=== PATIENT | female | born 1955 | race Caucasian/White ===

== ENCOUNTER → 2016-10-30 | Outpatient (CLI) | payer OTHER ==
--- NOTE | 2016-10-30 11:18 | MG ---
Examination: Bilateral screening mammogram. Clinical history: Routine screening. Technique: Digital CC and MLO views of both breasts were obtained. Computer aided detection analysis was performed and used during the interpretation. Comparison: 07/14/2015. Findings: The breasts are composed of scattered fibroglandular densities. Benign-appearing calcifications are noted in the right breast. No suspicious mass, area of architectural distortion or suspicious cluster of microcalcifications is noted. Impression: 1. No mammographic evidence of malignancy. BI-RADS category 2-benign findings. Recommend routine annual screening mammogram. Diagnostic CAD was utilized and reviewed. * 0 (ZERO) - ASSESSMENT INCOMPLETE; ADDITIONAL IMAGING IS NEEDED. * 0C - ASSESSMENT INCOMPLETE, NEEDS ADDITIONAL IMAGING EVALUATION AND/OR PRIOR MAMMOGRAMS FOR COMPAR MAG. * 1/1 (ONE) - NEGATIVE. * 2/II (TWO) - BENIGN FINDINGS. * 3/III (THREE) - PROBABLY BENIGN FINDING; SHORT INTERVAL FOLLOW-UP SUGGESTED. * 4/IV (FOUR) - SUSPICIOUS ABNORMALITY; BIOPSY SHOULD BE CONSIDERED. * 5/V - HIGHLY SUSPICIOUS OF MALIGNANCY; BIOPSY SHOULD BE PERFORMED. * 6/IV - KNOWN BIOPSY PROVEN MALIGNANCY-APPROPRIATE ACTION SHOULD BE TAKEN. A NEGATIVE X-RAY REPORT SHOULD NOT DELAY BIOPSY IF A DOMINANT OR CLINICALLY SUSPICIOUS MASS IS PRESENT; 4 TO 8 PERCENT OF CANCERS ARE NOT IDENTIFIED BY X-RAY. A NEGATIVE REPORT MAY REINFORCE THE CLINICAL IMPRESSION. ADENOSIS AND DENSE BREASTS MAY OBSCURE AN UNDERLYING NEOPLASM. Reported By:
== END ==
LOC: RAD 09:55
PROVIDERS: ATTEND Specialist
DX: Z12.31 Encounter for screening mammogram for malignant neoplasm of breast (principal)
CPT/HCPCS: 77067

== ENCOUNTER → 2017-11-06 | Outpatient (CLI) | payer OTHER ==
--- NOTE | 2017-11-07 16:50 | MG ---
HISTORY: SCREENING Comparison: Multiple priors dating back to June 11, 2011 FINDINGS: Bilateral CC and MLO projections of the right and left breast were obtained. Scattered fibroglandula r tissue is seen to be present without significant interval change. No suspicious architectural dist ortion, mass or clustered microcalcifications can be observed to suggest malignancy. No skin thicken ing or nipple retraction is appreciated. No pathological lymphadenopathy can be identified. Benign- appearing calcifications are noted within the right and left breast. IMPRESSION: NO RADIOGRAPHIC EVIDENCE OF MALIGNANCY. ACR CATEGORY 2 - benign findings. FOLLOW-UP EXAM 1 YEAR. Diagnostic CAD was utilized and reviewed. * 0 (ZERO) - ASSESSMENT INCOMPLETE; ADDITIONAL IMAGING IS NEEDED. * 1/1 (ONE) - NEGATIVE. * 2/II (TWO) - BENIGN FINDINGS. * 3/III (THREE) - PROBABLY BENIGN FINDING; SHORT INTERVAL FOLLOW-UP SUGGESTED. * 4/IV (FOUR) - SUSPICIOUS ABNORMALITY; BIOPSY SHOULD BE CONSIDERED. * 5/V - HIGHLY SUSPICIOUS OF MALIGNANCY; BIOPSY SHOULD BE PERFORMED. A NEGATIVE X-RAY REPORT SHOULD NOT DELAY BIOPSY IF A DOMINANT OR CLINICALLY SUSPICIOUS MASS IS PRESENT; 4 TO 8 PERCENT OF CANCERS ARE NOT IDENTIFIED BY X-RAY. A NEGA TIVE REPORT MAY REINFORCE THE CLINICAL IMPRESSION. ADENOSIS AND DENSE BREASTS MAY OBSCURE AN UNDERLY ING NEOPLASM. Reported By:
== END ==
LOC: RAD 14:35
PROVIDERS: ATTEND Specialist
DX: Z12.31 Encounter for screening mammogram for malignant neoplasm of breast (principal)
CPT/HCPCS: 77067

== ENCOUNTER 2024-12-29 22:44 | Observation (INO) ==
--- NOTE | 2024-12-29 22:53 | DR.GENAD ---
HPI Time Seen Time Seen by Provider: 12/29/24 22:52 HPI Comment HPI Comment: She has had intermittent arm and chest discomfort for the past few days with at least one episode of blood pressure dropping into the low 100s and she felt really bad at that time. She came back around over the next few days but today noticed that her heart rate was in the 140s on her smart watch; she has some "pressure" in her chest but no n/v/dizziness/headache or abd pain. She does feel "weak". She has a hx of afib which spontaneously resolved and she is on no bp medication or med for rate control. She says she's "prediabetic" and that is why she takes metformin. ROS Review of Systems Constitutional: See HPI, Malaise and Fatigue Eyes: No Symptoms Reported ENTM: No Symptoms Reported Respiratoy: No Symptoms Reported Cardiovascular: See HPI Gastrointestinal/Abdominal: No Symptoms Reported Genitourinary: No Symptoms Reported Neurological: No Symptoms Reported Musculoskeletal: No Symptoms Reported Integumentary: No Symptoms Reported Hematologic/Lymphatic: No Symptoms Reported Endocrine: No Symptoms Reported Psychiatric: No Symptoms Reported PE Vital Signs Vitals: Vital Signs Pulse Rate 124 Pulse Rate 120 Pulse Rate 135 Pulse Rate 126 Pulse Rate 128 Pulse Rate 124 Pulse Rate 125 Pulse Rate 134 Pulse Rate 122 Pulse Rate 122 Pulse Rate 125 Pulse Rate 122 Pulse Rate 129 Pulse Rate 121 Pulse Rate 126 Pulse Rate 117 Pulse Rate 124 Pulse Rate 128 Pulse Rate 126 Pulse Rate 129 Pulse Rate 127 Pulse Rate 126 Pulse Rate 125 Pulse Rate 127 Pulse Rate 127 Pulse Rate 116 Pulse Rate 122 Pulse Rate 125 Pulse Rate 129 Pulse Rate 123 Pulse Rate 125 Respiratory Rate 15 Respiratory Rate 19 Respiratory Rate 14 Respiratory Rate 19 Respiratory Rate 18 Respiratory Rate 19 Respiratory Rate 17 Respiratory Rate 16 Respiratory Rate 22 Respiratory Rate 19 Respiratory Rate 17 Respiratory Rate 17 Respiratory Rate 19 Respiratory Rate 16 Respiratory Rate 12 Respiratory Rate 16 Respiratory Rate 17 Respiratory Rate 16 Respiratory Rate 13 Respiratory Rate 17 Respiratory Rate 15 Respiratory Rate 16 Respiratory Rate 18 Respiratory Rate 17 Respiratory Rate 16 Respiratory Rate 13 Respiratory Rate 16 Respiratory Rate 17 Respiratory Rate 15 Respiratory Rate 15 Blood Pressure 139/66 Blood Pressure 123/78 Blood Pressure 140/74 Blood Pressure 160/77 Blood Pressure 160/77 Blood Pressure 145/70 Blood Pressure 154/92 Blood Pressure 157/116 Blood Pressure 153/79 Blood Pressure 157/66 Blood Pressure 168/86 Blood Pressure 155/84 Blood Pressure 152/83 Blood Pressure 156/69 Blood Pressure 129/83 Blood Pressure 149/87 Blood Pressure 99/54 Blood Pressure 135/68 Blood Pressure 151/67 Blood Pressure 151/67 Blood Pressure 137/85 Blood Pressure 158/65 Blood Pressure 147/74 O2 Sat by Pulse Oximetry 99 O2 Sat by Pulse Oximetry 97 O2 Sat by Pulse Oximetry 97 O2 Sat by Pulse Oximetry 97 O2 Sat by Pulse Oximetry 98 O2 Sat by Pulse Oximetry 98 O2 Sat by Pulse Oximetry 98 O2 Sat by Pulse Oximetry 99 O2 Sat by Pulse Oximetry 98 O2 Sat by Pulse Oximetry 99 O2 Sat by Pulse Oximetry 98 O2 Sat by Pulse Oximetry 98 O2 Sat by Pulse Oximetry 98 O2 Sat by Pulse Oximetry 99 O2 Sat by Pulse Oximetry 98 O2 Sat by Pulse Oximetry 98 O2 Sat by Pulse Oximetry 98 O2 Sat by Pulse Oximetry 99 O2 Sat by Pulse Oximetry 99 O2 Sat by Pulse Oximetry 98 O2 Sat by Pulse Oximetry 99 O2 Sat by Pulse Oximetry 99 O2 Sat by Pulse Oximetry 98 O2 Sat by Pulse Oximetry 98 O2 Sat by Pulse Oximetry 98 O2 Sat by Pulse Oximetry 98 O2 Sat by Pulse Oximetry 98 O2 Sat by Pulse Oximetry 98 O2 Sat by Pulse Oximetry 98 O2 Sat by Pulse Oximetry 98 General Limitations: No Limitations General Appearance: Alert and In No Apparent Distress Head Head Exam: Normal Inspection Eyes Eye exam: Normal Appearance ENT TM/Canal Exam: Bilateral: Normal Neck Neck Exam: Normal Inspection Chest Chest Inspection: Normal Inspection Respiratory Respiratory Exam: Normal Lung Sounds Bilat Respiratory Exam: Bilateral: Clear to Auscultation Cardiovascular Cardiovascular Exam: Tachycardia and Irregular Rhythm Abdominal Exam Abdominal Exam: Normal Inspection, Normal Bowel Sounds and Soft Extremities Extremities Exam: Normal Inspection Back Back Exam: Normal Inspection Neurologic Neurological Exam: Alert and Oriented X3 Psychiatric Psychiatric Exam: Normal Affect and Normal Mood Skin Skin Exam: Warm, Dry, Intact and Normal Color COURSE Treatment Treatment: 51 hr remains in the 110-120 range with bp down to 90/52; pt feels "a little weak" but denies cp, sob; bp rises back to 142/80s while I'm in the room; hr remains elevated; add digoxin 0300 hr erratic and jumps to 140s when she gets up; she still feels "weak" and bp also erratic initially in the 200s then trending down to 90/50 after lopressor; then back to 140s and now back down; will admit pt to control rate and bp; given digoxin d/t low bp; monitor at least overnight. Reevaluation 1st: Improved Consultation Call Returned: 03:36 (Dr King returned call and accepts admission.) [facility] Labs Reviewed Laboratory Results Reviewed?: Yes 12/30/24 03:13 12/30/24 03:13 Laboratory: WBC 11.3 X10^3/uL (3.6-10.0) H 12/29/24 22:50 RBC 4.51 X10^6/uL (3.5-5.4) 12/29/24 22:50 Hgb 14.0 g/dL (12.0-16.0) 12/29/24 22:50 Hct 40.4 % (36.0-47.0) 12/29/24 22:50 MCV 89.5 fL (80.0-100.0) 12/29/24 22:50 MCH 31.0 pg (27.0-34.0) 12/29/24 22:50 MCHC 34.6 g/dL (33.0-35.0) 12/29/24 22:50 RDW 13.7 % (11.6-16.5) 12/29/24 22:50 Plt Count 300 X10^3/uL (150.0-450.0) 12/29/24 22:50 MPV 9.2 fL (7.4-11.0) 12/29/24 22:50 Neut % (Auto) 59.0 % (42.0-75.0) 12/29/24 22:50 Lymph % (Auto) 27.9 % (21.0-51.0) 12/29/24 22:50 Turner % (Auto) 8.1 % (0.0-13.0) 12/29/24 22:50 Eos % (Auto) 3.9 % (0.9-2.9) H 12/29/24 22:50 Baso % (Auto) 1.1 % (0.2-1.0) H 12/29/24 22:50 Neut # (Auto) 6.7 x10^3/uL (2.2-4.8) H 12/29/24 22:50 Lymph # (Auto) 3.2 X10^3/uL (1.3-2.9) H 12/29/24 22:50 Turner # (Auto) 0.9 x10^3/uL (0.3-0.8) H 12/29/24 22:50 Eos # (Auto) 0.4 x10^3/uL (0.0-0.2) H 12/29/24 22:50 Baso # (Auto) 0.1 X10^3/uL (0.0-0.1) 12/29/24 22:50 Absolute Nucleated RBC 0.2 /100WBC 12/29/24 22:50 PT 12.2 SECONDS (11.8-14.3) 12/29/24 22:50 INR Target Range - 12/29/24:50 INR 0.89 (0.8-1.3) 12/29/24 22:50 APTT 27.3 SECONDS (22.9-36.5) 12/29/24 22:50 PTT Comment - 12/29/24 22:50 Sodium 144 mmol/L (136-145) 12/29/24 22:50 Corrected Sodium 144 mmol/L (136-145) 12/29/24 22:50 Potassium 3.8 mmol/L (3.5-5.1) 12/29/24 22:50 Chloride 107 mmol/L (98-107) 12/29/24 22:50 Carbon Dioxide 27.6 mmol/L (21-32) 12/29/24 22:50 BUN 14 mg/dL (7-18) 12/29/24 22:50 Creatinine 0.81 mg/dL (0.55-1.02) 12/29/24 22:50 Est GFR (MDRD) Af Amer > 60 (>60) 12/29/24 22:50 Est GFR (MDRD) Non-Af > 60 (>60) 12/29/24 22:50 Glucose 113 mg/dL (65-99) H 12/29/24 22:50 Calcium 9.3 mg/dL (8.5-10.1) 12/29/24 22:50 Corrected Calcium TNP 12/29/24 22:50 Magnesium 2.1 mg/dL (2.0-2.9) 12/29/24 22:50 Total Bilirubin 0.30 mg/dL (0.2-1.0) 12/29/24 22:50 AST 17 Units/L (15-37) 12/29/24 22:50 ALT 21 Units/L (12-78) 12/29/24 22:50 Alkaline Phosphatase 72 Units/L (46-116) 12/29/24 22:50 Creatine Kinase 87 Units/L (26-192) 12/29/24 22:50 Troponin I High Sens 4.6 ng/L (4.0-60.0) 12/29/24 22:50 Total Protein 8.3 g/dL (6.4-8.2) H 12/29/24 22:50 Albumin 4.5 g/dL (3.4-5.0) 12/29/24 22:50 Globulin 3.8 g/dL (2.5-4.5) 12/29/24 22:50 Albumin/Globulin Ratio 1.2 Ratio (1.1-2.1) 12/29/24 22:50 Free T4 0.88 ng/dL (0.76-1.46) 12/29/24 22:50 TSH 3rd Generation 2.488 uIU/mL (0.358-3.74) 12/29/24 22:50 Digoxin < 0.20 ng/mL (0.9-2) L 12/29/24 22:50 XRAY XRAY Interpreted by: Radiologist X-ray Results: pcxr: No focal consolidation is seen. Opioid Opioid Risk Tool Total: 0 Total Score Risk Category: Low Risk Copyright: Xiang JEWELL predicting aberrant behaviors Discharge Plan Diagnosis Discharge Problem: Atrial fibrillation with RVR Discharge Plan Patient Disposition: ADMITTED INPATIENT Condition: Stable
--- NOTE | 2024-12-29 23:00 | EKG ---
Test Reason : AFIB RVR Blood Pressure : */* mmHG Vent. Rate : 132 BPM Atrial Rate : * BPM P-R Int : * ms QRS Dur : 120 ms QT Int : 316 ms P-R-T Axes : * 75 -16 degrees QTc Int : 468 ms Atrial fibrillation with rapid ventricular response Right bundle branch block Abnormal ECG No previous ECGs available Confirmed by Pawel Smith MD ([id number]) on 12/30/2024 5:35:16 AM Referred By: Confirmed By: Pawel Smith MD
[2024-12-29 23:07] LABS: BASOPHILS # (AUTO) 0.1 X10^3/uL (0.0-0.1); BASOPHILS % (AUTO) 1.1 % (0.2-1.0); EOSINOPHILS # (AUTO) 0.4 x10^3/uL (0.0-0.2); EOSINOPHILS % (AUTO) 3.9 % (0.9-2.9); HEMATOCRIT 40.4 % (36.0-47.0); LYMPHOCYTES # (AUTO) 3.2 X10^3/uL (1.3-2.9); LYMPHOCYTES % (AUTO) 27.9 % (21.0-51.0); MEAN CORPUSCULAR HGB CONC 34.6 g/dL (33.0-35.0); MEAN CORPUSCULAR VOLUME 89.5 fL (80.0-100.0); MEAN PLATELET VOLUME 9.2 fL (7.4-11.0); MONOCYTES # (AUTO) 0.9 x10^3/uL (0.3-0.8); MONOCYTES % (AUTO) 8.1 % (0.0-13.0); NEUTROPHILS # (AUTO) 6.7 x10^3/uL (2.2-4.8); PLATELET COUNT 300 X10^3/uL (150.0-450.0); RED BLOOD COUNT 4.51 X10^6/uL (3.5-5.4); RED CELL DISTRIBUTION WIDTH 13.7 % (11.6-16.5); WHITE BLOOD COUNT 11.3 X10^3/uL (3.6-10.0)
[2024-12-29 23:10] LABS: INR 0.89 (0.8-1.3)
[2024-12-29] MEDS: LOPRESSOR INJ 5 MG AMP IVP ONE (23:16)
[2024-12-29 23:22] LABS: ALANINE AMINOTRANSFERASE 21 Units/L (12-78); ALBUMIN 4.5 g/dL (3.4-5.0); ALKALINE PHOSPHATASE 72 Units/L (46-116); ASPARTATE AMINO TRANSFERASE 17 Units/L (15-37); BLOOD UREA NITROGEN 14 mg/dL (7-18); CALCIUM 9.3 mg/dL (8.5-10.1); CARBON DIOXIDE 27.6 mmol/L (21-32); CHLORIDE 107 mmol/L (98-107); COR NA(FOR HYPERGLY) 144 mmol/L (136-145); CREATINE KINASE 87 Units/L (26-192); CREATININE 0.81 mg/dL (0.55-1.02); GLUCOSE 113 mg/dL (65-99); MAGNESIUM 2.1 mg/dL (2.0-2.9); POTASSIUM 3.8 mmol/L (3.5-5.1); SODIUM 144 mmol/L (136-145); TOTAL PROTEIN 8.3 g/dL (6.4-8.2); eGFR NON BLACK RACES > 60 (>60)
--- NOTE | 2024-12-29 23:30 | RAD ---
EXAM: FRONTAL VIEW CHEST X-RAY HISTORY: Chest pain COMPARISON: None. FINDINGS: No focal consolidation is seen. The heart size is within normal limits. The mediastinum is unremarkable. There is no evidence of pleural effusion or gross pneumothorax. The trachea is midline. IMPRESSION: No focal consolidation is seen. The heart size is normal. THIS IS AN ELECTRONICALLY VERIFIED FINAL REPORT 12/29/2024 11:26 PM - Electronically signed by Milan Sheikh MD
[2024-12-30] MEDS: LANOXIN INJ IVP STA (01:00)
[2024-12-30 03:22] LABS: BASOPHILS # (AUTO) 0.1 X10^3/uL (0.0-0.1); EOSINOPHILS # (AUTO) 0.3 x10^3/uL (0.0-0.2); EOSINOPHILS % (AUTO) 3.1 % (0.9-2.9); HEMOGLOBIN 13.4 g/dL (12.0-16.0); LYMPHOCYTES # (AUTO) 2.4 X10^3/uL (1.3-2.9); LYMPHOCYTES % (AUTO) 24.7 % (21.0-51.0); MEAN CORPUSCULAR HEMOGLOBIN 30.9 pg (27.0-34.0); MEAN CORPUSCULAR HGB CONC 34.3 g/dL (33.0-35.0); MONOCYTES # (AUTO) 0.8 x10^3/uL (0.3-0.8); MONOCYTES % (AUTO) 8.2 % (0.0-13.0); NEUTROPHILS # (AUTO) 6.1 x10^3/uL (2.2-4.8); PLATELET COUNT 288 X10^3/uL (150.0-450.0); RED BLOOD COUNT 4.33 X10^6/uL (3.5-5.4); RED CELL DISTRIBUTION WIDTH 13.5 % (11.6-16.5); WHITE BLOOD COUNT 9.7 X10^3/uL (3.6-10.0)
[2024-12-30 03:29] LABS: FREE T4 (FREE THYROXINE) 0.88 ng/dL (0.76-1.46); TSH (3RD GENERATION) 2.488 uIU/mL (0.358-3.74)
[2024-12-30 03:34] LABS: ALANINE AMINOTRANSFERASE 18 Units/L (12-78); ALBUMIN 3.8 g/dL (3.4-5.0); ALKALINE PHOSPHATASE 63 Units/L (46-116); ASPARTATE AMINO TRANSFERASE 13 Units/L (15-37); BLOOD UREA NITROGEN 12 mg/dL (7-18); CALCIUM 8.7 mg/dL (8.5-10.1); CARBON DIOXIDE 28.8 mmol/L (21-32); CHLORIDE 109 mmol/L (98-107); CREATINE KINASE 71 Units/L (26-192); CREATININE 0.76 mg/dL (0.55-1.02); GLUCOSE 101 mg/dL (65-99); SODIUM 145 mmol/L (136-145); TOTAL PROTEIN 7.2 g/dL (6.4-8.2); eGFR NON BLACK RACES > 60 (>60)
[2024-12-30] MEDS: LANOXIN INJ IVP SCH (09:05)
[2024-12-30] MEDS: ELIQUIS PO SCH (09:05)
[2024-12-30] MEDS: CONSULT PHARMACY - POTASSIUM & MAGNESIUM XX SCH (09:08)
[2024-12-30] MEDS: PriLOSEC PO SCH (10:51)
[2024-12-30] MEDS: CRESTOR TAB 10 MG PO SCH (10:52)
[2024-12-30] MEDS: GLUCOPHAGE PO SCH (10:52)
[2024-12-30] MEDS: GLUCOPHAGE ONE (11:00)
[2024-12-30] MEDS: LANOXIN PO SCH (12:01)
[2024-12-30] MEDS: SINGULAIR TAB 10 MG PO SCH ×2 (19:00→20:27)
[2024-12-30] MEDS: PROGESTERONE MICRONIZED 200 MG PO SCH ×2 (19:00→20:27)
[2024-12-30] MEDS ORDERED: GLUCOPHAGE ONE (20:17)
[2024-12-31 04:53] LABS: BASOPHILS # (AUTO) 0.1 X10^3/uL (0.0-0.1); BASOPHILS % (AUTO) 0.6 % (0.2-1.0); EOSINOPHILS # (AUTO) 0.4 x10^3/uL (0.0-0.2); EOSINOPHILS % (AUTO) 4.4 % (0.9-2.9); HEMATOCRIT 37.9 % (36.0-47.0); LYMPHOCYTES % (AUTO) 21.1 % (21.0-51.0); MEAN CORPUSCULAR HGB CONC 34.3 g/dL (33.0-35.0); MEAN CORPUSCULAR VOLUME 90.5 fL (80.0-100.0); MEAN PLATELET VOLUME 9.4 fL (7.4-11.0); MONOCYTES # (AUTO) 0.8 x10^3/uL (0.3-0.8); MONOCYTES % (AUTO) 8.7 % (0.0-13.0); NEUTROPHILS # (AUTO) 6.2 x10^3/uL (2.2-4.8); NEUTROPHILS % (AUTO) 65.2 % (42.0-75.0); PLATELET COUNT 264 X10^3/uL (150.0-450.0); RED BLOOD COUNT 4.19 X10^6/uL (3.5-5.4); RED CELL DISTRIBUTION WIDTH 13.6 % (11.6-16.5); WHITE BLOOD COUNT 9.5 X10^3/uL (3.6-10.0)
[2024-12-31 05:08] LABS: ALANINE AMINOTRANSFERASE 17 Units/L (12-78); ALBUMIN 3.5 g/dL (3.4-5.0); ALKALINE PHOSPHATASE 62 Units/L (46-116); ASPARTATE AMINO TRANSFERASE 11 Units/L (15-37); BLOOD UREA NITROGEN 16 mg/dL (7-18); CALCIUM 8.4 mg/dL (8.5-10.1); CARBON DIOXIDE 23.5 mmol/L (21-32); CHLORIDE 109 mmol/L (98-107); CREATININE 0.85 mg/dL (0.55-1.02); GLUCOSE 97 mg/dL (65-99); POTASSIUM 4.1 mmol/L (3.5-5.1); SODIUM 145 mmol/L (136-145); TOTAL PROTEIN 6.7 g/dL (6.4-8.2); eGFR NON BLACK RACES > 60 (>60)
[2024-12-31] MEDS: THYROID 60 MG PO SCH (07:39)
[2024-12-31] MEDS: GLUCOPHAGE ONE (10:16)
[2024-12-31 10:27] VITALS: BP 146/67; PULSE 83; RESP 21; TEMP 98.6; O2SAT 98
== END 2024-12-31 10:20 | disposition home or self-care (01) ==
LOC: ER 22:44 → ICU 22:44
PROVIDERS: ADMIT Obstetrics & Gynecology Obstetrics; ATTEND Obstetrics & Gynecology Obstetrics
DX: R94.31 Abnormal electrocardiogram [ECG] [EKG]; Z79.899 Other long term (current) drug therapy; R07.89 Other chest pain; I45.10 Unspecified right bundle-branch block; E03.8 Other specified hypothyroidism; I95.89 Other hypotension; Z60.8 Other problems related to social environment; I48.19 Other persistent atrial fibrillation; R73.03 Prediabetes